=== PATIENT | male | born 1990 | race Caucasian/White ===

== ENCOUNTER 2023-06-10 09:38 | Emergency (ER) | payer OTHER ==
[2023-06-10 10:56] LABS: B. PARAPERTUSSIS- RESP PCR PAN NOT DETECTED; B. PERTUSSIS- RESP PCR PANEL NOT DETECTED; C. PNEUMONIAE- RESP PCR PANEL NOT DETECTED; CORONAVIRUS 229E-RESP PCR NOT DETECTED; CORONAVIRUS HKU1-RESP PCR NOT DETECTED; CORONAVIRUS NL63-RESP PCR NOT DETECTED; CORONAVIRUS OC43-RESP PCR NOT DETECTED; HUMAN METAPNEUMOVIRUS NOT DETECTED; INFLUENZA A- RESP PCR PANEL NOT DETECTED; INFLUENZA B - RESP PCR PANEL NOT DETECTED; M. PNEUMONIAE- RESP PCR PANEL NOT DETECTED; PARAINFLUENZA VIRUS 1 NOT DETECTED; PARAINFLUENZA VIRUS 2 NOT DETECTED; PARAINFLUENZA VIRUS 3 NOT DETECTED; PARAINFLUENZA VIRUS 4 NOT DETECTED; RHINOVIRUS/ENTEROVIRUS DETECTED; RSV- RESP PCR PANEL NOT DETECTED; SARS-CoV-2 -RESP PCR PANEL NOT DETECTED
--- NOTE | 2023-06-10 11:34 | ED Physician Documentation ---
History of Present Illness - Stated complaint Stated Complaint: FEVER/CULLEN/SORE THROAT - Chief complaint Chief Complaint: Fever - Additonal information Additional information: 32-year-old male here for 2 days of cough congestion sore throat headache. [employer]. Denies sick contacts. He was advised by [facility] medical to seek evaluation in the emergency department. Denies any pertinent past medical history. Review of Systems Constitutional: reports: Fever Nose: reports: Congestion Throat: reports: Sore throat Respiratory: reports: Cough GI: reports: Reviewed and negative : reports: Reviewed and negative PD PAST MEDICAL HISTORY - Past Medical History Past Medical History: No - Past Surgical History Past Surgical History: No - Present Medications Home Medications: Ambulatory Orders Medication Instructions Recorded Confirmed No Known Home Medications 06/10/23 06/10/23 - Allergies Allergies/Adverse Reactions: Allergies Allergy/AdvReac Type Severity Reaction Status Date / Time No Known Drug Allergies Allergy Verified 06/10/23 09:41 - Social History Does the pt smoke?: No Smoking Status: Never smoker Does the pt drink ETOH?: No Does the pt have substance abuse?: No - Immunizations Immunizations are current?: Yes PD ED PE NORMAL - General General: Alert and oriented X 3, No acute distress - HEENT HEENT: Pharynx benign (Mild posterior oropharynx without uvular deviation soft palate symmetric. No exudate. No tender anterior cervical lymphadenopathy.) - Neck Neck: Supple, no meningeal sign, No adenopathy - Cardiac Cardiac: RRR, No murmur - Respiratory Respiratory: No respiratory distress - Abdomen Abdomen: Normal bowel sounds, Soft - Derm Derm: Normal color - Extremities Extremities: No deformity - Neuro Neuro: Alert and oriented X 3, it solutions architect 2-12 intact Eye Opening: Spontaneous Motor: Obeys Commands Verbal: Oriented GCS Score: 15 Results - Vitals Vitals: Vital Signs - 24 hr 06/10/23 09:42 Temperature 38.1 C H Heart Rate 114 H Respiratory 20 Rate Blood Pressure 155/80 H O2 Saturation 97 Oxygen O2 Source Room air - Labs Labs: Laboratory Tests 06/10/23 09:50 Nasal Adenovirus (PCR) NOT DETECTED Nasal B. parapertussis DNA (PCR) NOT DETECTED Nasal Coronavir 229E PCR NOT DETECTED Nasal Coronavir HKU1 PCR NOT DETECTED Nasal Coronavir NL63 PCR NOT DETECTED Nasal Coronavir OC43 PCR NOT DETECTED Nasal Enterovir/Rhinovir PCR DETECTED A Nasal Influenza B PCR NOT DETECTED Nasal Influenza A PCR NOT DETECTED Nasal Parainfluen 1 PCR NOT DETECTED Nasal Parainfluen 2 PCR NOT DETECTED Nasal Parainfluen 3 PCR NOT DETECTED Nasal Parainfluen 4 PCR NOT DETECTED Nasal RSV (PCR) NOT DETECTED Nasal B.pertussis DNA PCR NOT DETECTED Nasal C.pneumoniae (PCR) NOT DETECTED Rodrigo Human Metapneumo PCR NOT DETECTED Nasal M.pneumoniae (PCR) NOT DETECTED Nasal SARS-CoV-2 (PCR) NOT DETECTED PD Medical Decision Making - ED course Complexity details: reviewed results, d/w patient ED course: Well-appearing male presents emergency department for evaluation of fevers, headache, sore throat and cough. Symptoms began 2 days ago. Respiratory PCR has tested positive for rhinovirus. On evaluation he did have some mild tachycardia but no hypoxia or respiratory distress. Cardiopulmonary auscultation was unremarkable. I discussed with patient the usual care management of a viral upper respiratory infection. Clinically patient does not have any evidence of meningitis or encephalitis. Will defer x-ray imaging given short durations of symptoms and findings of rhinovirus on PCR. Recommend Motrin, Tylenol fluids and rest. The usual emergent return precautions for worsening symptoms were discussed. Departure - Departure Disposition: 01 Home, Self Care Clinical Impression: Rhinovirus infection Condition: Stable Record reviewed to determine appropriate education?: Yes Instructions: ED Viral Syndrome Comments: Alfonzo you have had fever, headache, sore throat some nausea and congestion. You have tested positive for rhinovirus the cause of the common cold. There is no specific treatment for this as it is a virus and typically gets better on its own. You can typically expect your symptoms to persist between 5 and 10 days. We recommend Tylenol and Motrin for fever and body aches. You should get lots of rest and drink plenty of fluids. Reasons to return to the emergency department would be the development of any new fever after 5 to 6 days, severe cough or shortness of air, or uncontrolled vomiting.
[2023-06-10 11:41] VITALS: BP 149/79; O2SAT 98
== END 2023-06-10 11:38 | disposition home or self-care (01) ==
LOC: ED 09:38
DX: B34.8 Other viral infections of unspecified site (principal); Z20.822 Contact with and (suspected) exposure to COVID-19
CPT/HCPCS: 87633; 99282; 99283

== ENCOUNTER 2023-10-08 16:15 | Emergency (ER) | payer OTHER ==
[2023-10-08] MEDS ORDERED: IBUPROFEN 800 MG TABLET PO STA (16:50)
[2023-10-08] MEDS ORDERED: ACETAMINOPHEN 325 MG TABLET PO STA (16:50)
--- NOTE | 2023-10-08 17:09 | ED Physician Documentation ---
History of Present Illness - Stated complaint Stated Complaint: PX - Chief complaint Chief Complaint: General - History obtained from History obtained from: Patient - History of Present Illness Timing: Last night Pain level max: 5 Pain level now: 5 - Additonal information Additional information: 33-year-old male with right testicular pain. He states that he was having intercourse with his last night when his right Testicle was "squished". He states he had pain for about 15 minutes, then fell asleep. Awoke this morning with an ache/throbbing in the testicle. No swelling. No redness. No skin changes. Review of Systems Constitutional: denies: Fever, Chills GI: denies: Abdominal Pain, Vomiting, Diarrhea : denies: Dysuria, Frequency, Hesitancy, Hematuria Skin: denies: Rash PD PAST MEDICAL HISTORY - Past Medical History Past Medical History: Yes Cardiovascular: None Respiratory: None Neuro: None Endocrine/Autoimmune: None GI: None : None HEENT: None Psych: None Musculoskeletal: None - Past Surgical History Past Surgical History: No - Present Medications Home Medications: Ambulatory Orders Medication Instructions Recorded Confirmed No Known Home Medications 06/10/23 10/08/23 - Allergies Allergies/Adverse Reactions: Allergies Allergy/AdvReac Type Severity Reaction Status Date / Time No Known Drug Allergies Allergy Verified 10/08/23 16:22 - Social History Does the pt smoke?: No Smoking Status: Former smoker Does the pt drink ETOH?: Yes Does the pt have substance abuse?: No - Immunizations Immunizations are current?: Yes - POLST Patient has POLST: No PD ED PE NORMAL - Vitals Vital signs reviewed: Yes - General General: Alert and oriented X 3, No acute distress - HEENT HEENT: Moist mucous membranes - Abdomen Abdomen: Soft, Non tender, Non distended - Male Male : Other (Normal testicular exam. Normal lie. No skin changes. No swelling. No penile discharge. No lymphadenopathy. No lacerations or abrasi ons) - Derm Derm: Warm and dry - Neuro Neuro: Alert and oriented X 3 Results - Vitals Vitals: Vital Signs - 24 hr 10/08/23 10/08/23 10/08/23 16:24 16:44 18:25 Temperature 36.3 C L 36.7 C Heart Rate 78 77 Respiratory 16 18 16 Rate Blood Pressure 120/76 123/68 O2 Saturation 98 100 Oxygen O2 Source Room air - Rads (name of study) Testicular ultrasound Relevant Findings:: Final report received, See rad report PD Medical Decision Making - ED course Complexity details: reviewed results, considered differential, d/w patient ED course: 33-year-old male with right-sided testicular pain after his testicle was accidentally hurt during intercourse. No evidence of bleeding into the scrotum. No evidence of torsion. No evidence of mass, tumor, infection. Normal examination here. Suspect contusion. Will recommend Motrin and Tylenol as needed for pain and have him follow-up with his doctor for further care. Patient counseled regarding signs and symptoms for which I believe and urgent re-evaluation would be necessary. Patient with good understanding of and agreement to plan and is comfortable going home at this time This document was made in part using voice recognition software. While efforts are made to proofread this document, sound alike and grammatical errors may occur. Departure - Departure Disposition: 01 Home, Self Care Clinical Impression: Testicular pain, right Condition: Good Instructions: ED Testicular Pain [facility] Follow-Up: your,doctor in 3 days if still having pain [Other] Comments: Your testicular ultrasound is normal tonight. Please continue motrin and tylenol as needed for pain. This should improve over the next 1-2 days. Forms: PCP List Discharge Date/Time: 10/08/23 18:26
--- NOTE | 2023-10-08 18:09 | Ultrasound Report ---
PROCEDURE: Testicle w/Doppler INDICATIONS: testicular pain TECHNIQUE: Real-time scanning was performed of the scrotum and testicles, with image documentation. Color and p ulse Doppler interrogation was performed of both testicles. COMPARISON: None. FINDINGS: Right: Testicle is normal in size at 5.1 x 2.5 x 3.1 cm, and homogenous in echotexture. Epididymis is normal in overall size and morphology. Small hydrocele. No varicoceles. Overlying scrotal skin i s normal in thickness. Left: Testicle is normal in size at 4.8 x 2.3 x 2.9 cm, and homogeneous in echotexture. Epididymis is normal in overall size and morphology. Small hydrocele. No varicoceles. Overlying scrotal skin is normal in thickness. Doppler: Color and pulse Doppler demonstrate normal and symmetric arterial flow in both testicles. IMPRESSION: No torsion at time of exam. Intermittent torsion cannot be excluded. Reviewed by: Lulú Giles MD on 10/08/2023 6:08 PM PST Approved by: Lulú Giles MD on 10/08/2023 6:08 PM PST Station ID: [id number]
[2023-10-08 18:28] VITALS: BP 123/68; O2SAT 100
== END 2023-10-08 18:26 | disposition home or self-care (01) ==
LOC: ED 16:15
DX: N50.811 Right testicular pain (principal); Z87.891 Personal history of nicotine dependence
CPT/HCPCS: 76870; 93975; 99283; 99284; A9270

== ENCOUNTER 2023-10-25 23:51 | Emergency (ER) | payer OTHER ==
--- NOTE | 2023-10-26 00:16 | ED Physician Documentation ---
History of Present Illness - Stated complaint Stated Complaint: LIGHTHEADED/NAUSEA - Chief complaint Chief Complaint: General - History obtained from History obtained from: Patient, Friend - Additonal information Additional information: 33yM previously healthy, +flu vaccinated, p/w body aches, headache, tmax 99.8 all starting today. also with cough productive of brownish sputum today. daily vape pen user. denies diarrhea, abdominal pain, back pain, cp pleurisy or hemoptysis. PD PAST MEDICAL HISTORY - Past Medical History Past Medical History: No Cardiovascular: None Respiratory: None Neuro: None Endocrine/Autoimmune: None GI: None : None HEENT: None Psych: None Musculoskeletal: None - Past Surgical History Past Surgical History: No - Present Medications Home Medications: Ambulatory Orders Medication Instructions Recorded Confirmed Ondansetron Odt [Zofran Odt] 4 mg TL Q6H PRN #10 tablet 10/26/23 - Allergies Allergies/Adverse Reactions: Allergies Allergy/AdvReac Type Severity Reaction Status Date / Time No Known Drug Allergies Allergy Verified 10/26/23 00:06 - Social History Does the pt smoke?: No Smoking Status: Never smoker Does the pt drink ETOH?: No Does the pt have substance abuse?: No - Immunizations Immunizations are current?: Yes - POLST Patient has POLST: No PD ED PE NORMAL - Vitals Vital signs reviewed: Yes - General General: Alert and oriented X 3, No acute distress, Well developed/nourished - HEENT HEENT: Atraumatic, PERRL, EOMI, Other (dry MM) - Neck Neck: Supple, no meningeal sign - Cardiac Cardiac: Other (tachycardic rate, regular rhythm) - Respiratory Respiratory: No respiratory distress, Clear bilaterally - Abdomen Abdomen: Non tender, Non distended - Derm Derm: Normal color, Warm and dry Results - Vitals Vitals: Vital Signs - 24 hr 10/26/23 10/26/23 00:01 00:05 Temperature 37.0 C 37 C Heart Rate 120 H 120 H Respiratory 18 18 Rate Blood Pressure 124/76 124/76 O2 Saturation 98 98 Oxygen O2 Source Room air - Labs Labs: Laboratory Tests 10/26/23 10/26/23 10/26/23 00:30 00:37 00:37 WBC 9.3 RBC 5.31 Hgb 15.8 Hct 46.3 MCV 87.2 MCH 29.8 MCHC 34.1 RDW 11.5 L Plt Count 276 MPV 9.9 Neut # (Auto) 7.7 H Lymph # (Auto) 0.9 L Prentiss # (Auto) 0.6 Eos # (Auto) 0.0 Baso # (Auto) 0.0 Absolute Nucleated RBC 0.00 Nucleated RBC % 0.0 Sodium 136 Potassium 3.9 Chloride 103 Carbon Dioxide 26 Anion Gap 7.0 BUN 16 Creatinine 1.0 Estimated GFR (MDRD) 87 L Glucose 109 H Calcium 9.2 Total Bilirubin 1.7 H AST 11 ALT 9 L Alkaline Phosphatase 52 Total Protein 6.8 Albumin 4.1 Globulin 2.7 Albumin/Globulin Ratio 1.5 Lipase 16 Nasal Adenovirus (PCR) NOT DETECTED Nasal B. parapertussis DNA (PCR) NOT DETECTED Nasal Coronavir 229E PCR NOT DETECTED Nasal Coronavir HKU1 PCR NOT DETECTED Nasal Coronavir NL63 PCR NOT DETECTED Nasal Coronavir OC43 PCR NOT DETECTED Nasal Enterovir/Rhinovir PCR DETECTED A Nasal Influenza B PCR NOT DETECTED Nasal Influenza A PCR NOT DETECTED Nasal Parainfluen 1 PCR NOT DETECTED Nasal Parainfluen 2 PCR NOT DETECTED Nasal Parainfluen 3 PCR NOT DETECTED Nasal Parainfluen 4 PCR NOT DETECTED Nasal RSV (PCR) NOT DETECTED Nasal B.pertussis DNA PCR NOT DETECTED Nasal C.pneumoniae (PCR) NOT DETECTED Rodrigo Human Metapneumo PCR NOT DETECTED Nasal M.pneumoniae (PCR) NOT DETECTED Nasal SARS-CoV-2 (PCR) NOT DETECTED PD Medical Decision Making - ED course ED course: 33yM presents with nbnb n/v, headache, body aches, chills, likely 2/2 viral syndrome. He is tachycardic and states he has been unable to keep food or liquids down therefore 1.5 L NS was ordered in addition to zofran/pepcid to good effect. patient able to tolerate po fluids s/p zofran. CULLEN improved s/p tylenol and IV toradol. cbc, abdominal panel, u/a ordered. rvp ordered. Note that labwork was remarkable for mildly elevated tbilirubin and RVP showed enterovirus/rhinovirus, explaining the mild hyperbilirubinemia. symptomatic care discussed. plan to dc home to f/u with pcm. return precautions given. Departure - Departure Disposition: 01 Home, Self Care Clinical Impression: URI (upper respiratory infection), Nausea and vomiting, Body aches, Chills, Enterovirus infection, Rhinovirus Condition: Stable Instructions: ED Viral Syndrome Prescriptions: Ondansetron Odt [Zofran Odt] 4 mg TL Q6H PRN #10 tablet PRN Reason: Nausea / Vomiting Comments: You were seen in the emergency department for viral syndrome. Electronic prescription for zofran antinausea medicine sent to [facility]. Please follow-up with your primary care provider and return to the emergency department if you have any new or worsening symptoms or other concerns. Forms: PCP List
[2023-10-26] MEDS: SODIUM CHLORIDE 0.9% 1,500 ML IV STA (00:28)
[2023-10-26] MEDS: FAMOTIDINE 20 MG/2 ML VIAL IVP STA (00:29)
[2023-10-26] MEDS: KETOROLAC 15 MG/ML VIAL IVP STA (00:29)
[2023-10-26] MEDS: ONDANSETRON 4 MG/2 ML VIAL IVP STA (00:29)
[2023-10-26] MEDS: ACETAMINOPHEN 325 MG TABLET PO STA (00:29)
[2023-10-26 00:42] LABS: BASOPHILS % (AUTO) 0.2 %; EOSINOPHILS % (AUTO) 0.2 %; HCT - HEMATOCRIT 46.3 % (42.0-52.0); HGB - HEMOGLOBIN 15.8 g/dL (14.0-18.0); LYMPHOCYTES # (AUTO) 0.9 10^3/uL (1.5-3.5); LYMPHOCYTES % (AUTO) 9.9 %; MEAN CORPUSCULAR HEMOGLOBIN 29.8 pg (27.0-31.0); MEAN CORPUSCULAR HGB CONC 34.1 g/dL (32.0-36.0); MEAN CORPUSCULAR VOLUME 87.2 fL (80.0-94.0); MEAN PLATELET VOLUME 9.9 fL (7.4-11.4); MONOCYTES # (AUTO) 0.6 10^3/uL (0.0-1.0); MONOCYTES % (AUTO) 6.7 %; NEUTROPHILS # (AUTO) 7.7 10^3/uL (1.5-6.6); NEUTROPHILS % (AUTO) 82.7 %; PLT - PLATELET COUNT 276 10^3/uL (130-450); RED BLOOD COUNT 5.31 10^6/uL (4.70-6.10); RED CELL DISTRIBUTION WIDTH 11.5 % (12.0-15.0); WHITE BLOOD COUNT 9.3 x10^3/uL (4.8-10.8)
[2023-10-26 01:00] LABS: ALBUMIN 4.1 g/dL (3.2-5.5); ALBUMIN/GLOBULIN RATIO 1.5 (1.0-2.2); BILIRUBIN,TOTAL 1.7 mg/dL (0.2-1.0); CALCIUM 9.2 mg/dL (8.5-10.3); POTASSIUM 3.9 mmol/L (3.5-4.5); TOTAL PROTEIN 6.8 g/dL (6.4-8.9)
[2023-10-26 02:08] LABS: B. PARAPERTUSSIS- RESP PCR PAN NOT DETECTED; B. PERTUSSIS- RESP PCR PANEL NOT DETECTED; C. PNEUMONIAE- RESP PCR PANEL NOT DETECTED; CORONAVIRUS 229E-RESP PCR NOT DETECTED; CORONAVIRUS HKU1-RESP PCR NOT DETECTED; CORONAVIRUS NL63-RESP PCR NOT DETECTED; CORONAVIRUS OC43-RESP PCR NOT DETECTED; HUMAN METAPNEUMOVIRUS NOT DETECTED; INFLUENZA A- RESP PCR PANEL NOT DETECTED; INFLUENZA B - RESP PCR PANEL NOT DETECTED; M. PNEUMONIAE- RESP PCR PANEL NOT DETECTED; PARAINFLUENZA VIRUS 1 NOT DETECTED; PARAINFLUENZA VIRUS 2 NOT DETECTED; PARAINFLUENZA VIRUS 3 NOT DETECTED; PARAINFLUENZA VIRUS 4 NOT DETECTED; RHINOVIRUS/ENTEROVIRUS DETECTED; RSV- RESP PCR PANEL NOT DETECTED; SARS-CoV-2 -RESP PCR PANEL NOT DETECTED
[2023-10-26 02:41] VITALS: BP 169/70; O2SAT 96
== END 2023-10-26 02:34 | disposition home or self-care (01) ==
LOC: ED 23:51
DX: J06.9 Acute upper respiratory infection, unspecified (principal); B34.1 Enterovirus infection, unspecified; B34.8 Other viral infections of unspecified site; M79.10 Myalgia, unspecified site; R11.2 Nausea with vomiting, unspecified; F17.290 Nicotine dependence, other tobacco product, uncomplicated
CPT/HCPCS: 36415; 80053; 83690; 85025; 87633; 96374; 99283; A9270